=== PATIENT | female | born 2000 | race Caucasian/White ===

== ENCOUNTER 2019-03-25 00:59 | Emergency (ER) | payer BC ==
[~2019-03-25] VITALS: Ht 167.6 cm; Wt 61.2 kg
[2019-03-25 01:03] VITALS: Ht 167.6 cm; Wt 61.2 kg
[2019-03-25 01:47] LABS: BASOPHIL % 1.1 % (0-2); PLATELET COUNT 266 x10^3mcL (130-400); RED CELL DISTRIBUTION WIDTH 12.7 % (11.5-14.5)
[2019-03-25 01:55] LABS: CARBON DIOXIDE 27.3 mmol/L (21-32); CHLORIDE SERUM 102 mmol/L (98-107); CREATININE SERUM 0.9 mg/dL (0.6-1.0); GFR1 > 60 mL/min; GLUCOSE SERUM 108 mg/dL (74-106); POTASSIUM SERUM 3.9 mmol/L (3.5-5.1); SODIUM SERUM 138 mmol/L (136-145)
[2019-03-25 02:00] LABS: ALBUMIN 4.1 g/dL (3.4-5.0); ALKALINE PHOSPHATASE 58 U/L (46-116); ALT/SGPT 27 U/L (14-59); AST/SGOT 21 U/L (15-37); BILIRUBIN TOTAL 0.4 mg/dL (0.20-1.00); C REACTIVE PROTEIN 0.2 mg/dL (<=0.9); TOTAL PROTEIN, SERUM 7.8 g/dL (6.4-8.2)
[2019-03-25 02:42] LABS: ERYTHROCYTE SED RATE 6 mm/hr (0-20)
[2019-03-25 03:24] VITALS: BP 122/70
== END 2019-03-25 03:24 | disposition home or self-care (01) ==
LOC: ED 00:59
PROVIDERS: Emergency Medicine
DX: M79.641 Pain in right hand (principal); R22.31 Localized swelling, mass and lump, right upper limb
CPT/HCPCS: 36415